=== PATIENT | female | born 1955 | race Caucasian/White ===

== ENCOUNTER 2017-07-13 19:16 | Observation (INO) | payer OTHER ==
[~2017-07-13] VITALS: Ht 149.9 cm; Wt 74.8 kg
[~2017-07-13 19:16] MED LIST: ENBREL50 MG/1 ML SC; METHOTREXATE2.5 M2 PO; PREDNISONE1 MG PO; TOPROL XL 25MG25 MG PO
--- NOTE | 2017-07-13 19:40 | ED GENERAL ADULT ---
History of Present Illness General Chief Complaint: General Adult Stated Complaint: VOMITING, FAINTING,"MAYBE THE FLU" Source: patient, family Exam Limitations: no limitations Vital Signs & Intake/Output Vital Signs & Intake/Output Vital Signs Date Time Temp Pulse Resp B/P B/P Pulse O2 O2 Flow FiO2 Mean Ox Delivery Rate 07/14 0357 98.4 70 18 106/55 97 Room Air 07/14 0031 98.1 86 18 100/56 98 Room Air 07/13 2136 99.3 90 20 106/63 97 Room Air 07/13 2108 98.3 07/13 2108 98.3 07/13 2001 101.1 07/13 1946 Room Air 07/13 193 101.1 98 24 127/75 92 Room Air ED Intake and Output 07/14 0000 07/13 1200 Intake Total 1000 Output Total Balance 1000 Intake, IV 1000 Patient 165 lb Weight Allergies Coded Allergies: NO KNOWN ALLERGIES (05/04/14) Triage Note: PER PT VOMITING ALL DAY SINCE 2 PM FEELING LOUSY, PER PT PASSED OUT, UNSURE HOW MANY TIMES PER PT USED PASS OUT WITH THE STOMACH BUG A KID DENIES CP Triage Nurses Notes Reviewed? yes Onset: Abrupt Duration: day(s): (1), constant, continues in ED, getting worse Timing: multiple episodes today Injury Environment: home Severity: moderate, severe Severity Numbers: 8 No Modifying Factors: none LMP (ages 10-50): post menopausal : No Patient currently breastfeeds: No HPI: 62-year-old female past medical history of rheumatoid arthritis presents for evaluation of nausea vomiting fever BODYaches and multiple syncopal episodes. Patient states that she woke up today feeling somewhat nauseous and then around 1 or 2 PM she started repeatedly vomiting. Patient states that she vomited again on 3 separate occasions lost consciousness after vomiting. She is unsure if she fell but notes that she broke her glasses when she woke up and was unsure how. She also notes that when she woke up after the syncopal episode she noticed chest heaviness and pressure. No shortness of breath this resolved after several minutes. She states that she had similar episodes back when she was a child during vomiting but nothing recent. She is not taking any medicine for her symptoms. She denies diarrhea hemoptysis lower extremity edema recent surgery recent trauma. No rashes or sick contacts. She is not been able to eat or drink much due to her symptoms. (Rigoberto Che) Reconcile Medications Etanercept (Enbrel) 50 MG/ML (0.98 ML) SYRINGE 50 UNITS SC QW RA (Reported) Levothyroxine Sodium 75 MCG TABLET 1 TAB PO DAILY THYROID (Reported) Methotrexate 2.5 MG TABLET 4 TAB PO QW RA (Reported) Metoprolol Succ XL (Toprol XL) 25 MG TAB 1 TAB PO DAILY SVT Prednisone 1 MG TABLET 7 MG PO DAILY RA (Reported) (Jonathan ANN,Maru) Past History Travel History Traveled to [place] past 21 day No Medical History Any Pertinent Medical History? see below for history Neurological: NONE EENT: NONE Cardiovascular: SVT Respiratory: NONE Gastrointestinal: NONE Hepatic: NONE Renal: NONE Musculoskeletal: RA Endocrine: THYROID Surgical History Surgical History: non-contributory Psychosocial History What is your primary language Kinyarwanda Tobacco Use: Never used Family History Hx Contributory? No (Rigoberto Che) Review of Systems Review of Systems Constitutional: Reports: fever, malaise, weakness. EENTM: Reports: no symptoms. Respiratory: Reports: no symptoms. Cardiovascular: Reports: see HPI, chest pain, syncope. GI: Reports: see HPI, nausea, vomiting. Genitourinary: Reports: no symptoms. Musculoskeletal: Reports: see HPI, muscle pain, muscle stiffness. Skin: Reports: no symptoms. Neurological/Psychological: Reports: see HPI, weakness. Hematologic/Endocrine: Reports: no symptoms. Immunologic/Allergic: Reports: no symptoms. All Other Systems: Reviewed and Negative (Rigoberto Che) Physical Exam Physical Exam General Appearance: well developed/nourished, no apparent distress, alert, awake , obese Head: atraumatic, normal appearance, NO EVIDENCE OF TRAUMA NO Chavez'S SIGNS OR RACCOON EYES NO PAIN TO PALPATION OF THE FACIAL BONES Eyes: Bilateral: normal appearance, PERRL, EOMI. Ears, Nose, Throat: normal pharynx, normal ENT inspection, hearing grossly normal Neck: normal inspection, supple, full range of motion, NO jvd NO CAROTID BRUITS Respiratory: normal breath sounds, chest non-tender, no respiratory distress, lungs clear Cardiovascular: regular rate/rhythm, normal peripheral pulses Peripheral Pulses: 2+ radial (R), 2+ radial (L) Gastrointestinal: normal bowel sounds, soft, non-tender, no organomegaly Back: normal inspection, normal range of motion, no vertebral tenderness Extremities: normal inspection, normal range of motion, no edema Neurologic/Psych: no motor/sensory deficits, awake, alert, oriented x 3 Skin: intact, normal color, warm/dry Core Measures ACS in differential dx? Yes No ASA d/t RULED OUT CVA/TIA Diagnosis: No Sepsis Present: No Sepsis Focused Exam Completed? No (Aneudy CHANEL,Rigoberto) Progress Differential Diagnoses I considered the following diagnoses in my evaluation of the patient: [ Arrhythmia, electrolyte abnormality, influenza, pneumonia, intracranial hemorrhage, intracranial mass, dehydration, UTI, acute coronary syndrome] Plan of Care: Orders Procedure Date/time Status Heart Healthy Diet 07/14 B Active TROPONIN LEVEL 07/14 0300 Complete EKG 07/14 0300 Active BLOOD CULTURE 07/14 223 Active Pathway - chart 07/14 221 Active House Staff 07/14 022 Active Patient Data 07/14 221 Active Code Status 07/142 Active VTE Mechanical Prophylaxis 07/14 UNK Active MISTAKE 07/14 UNK Active Telemetry/Assistant [employer]'S Soccer Coach 07/14 UNK Active Intake & Output 07/14 UNK Active ECHOCARDIOGRAM 07/[address] in observation 07/13 2353 Active ED Holding Orders 07/13 2353 Active Vital Signs 07/13 2353 Active Code Status 07/13 2353 Complete Patient Data 07/13 2349 Active Add-on Test (ER Only) 07/13 2326 Active TROPONIN LEVEL 07/13 2300 Complete EKG 07/13 2257 Active Add-on Test (ER Only) 07/13 2010 Active Intake & Output 07/13 2002 Active LIPASE 07/13 1999 Complete D-DIMER 07/13 1999 Complete URINALYSIS 07/13 1941 Complete TROPONIN LEVEL 07/13 1938 Complete COMPREHENSIVE METABOLIC PANEL 07/13 1938 Complete CBC WITHOUT DIFFERENTIAL 07/13 193 Complete EKG 07/13 1931 Active RAPID VIRAL INFLUENZA A 07/13 1924 Complete Current Medications Sig/Luis Antonio Start time Last Medication Dose Stop Time Status Admin Enoxaparin Sodium 40 MG DAILY 07/14 1000 AC (Lovenox) Metoprolol Succinate 25 MG DAILY 07/14 1000 AC (Toprol XL) Prednisone 7 MG DAILY 07/14 1000 AC Levothyroxine Sodium 0.075 MG DAILY AC 07/14 0700 AC (Synthroid) Sodium Chloride 1,000 ML Q13H 07/14 0245 AC 07/14 (Normal Saline 0.9%) 07/14 1544 0321 Acetaminophen 650 MG Q6P PRN 07/14 214 AC (Tylenol) Ibuprofen 600 MG Q6P PRN 07/14 214 AC (Motrin) Morphine Sulfate 2 MG Q4P PRN 07/14 214 AC (Morphine) Ondansetron HCl 4 MG Q6P PRN 07/14 214 AC (Zofran) Laboratory Tests 07/14/17 0302: Troponin I < 0.01 07/13/17 2335: Troponin I < 0.01 07/13/17 2140: Urine Color YEL, Urine Clarity CLEAR, Urine pH 7.0, Ur Specific Calcium 1.015, Urine Protein NEG, Urine Ketones NEG, Urine Nitrite NEG, Urine Bilirubin NEG, Urine Urobilinogen 0.2, Ur Leukocyte Esterase NEG, Ur Microscopic EXAM NOT REQUIRED, Urine Hemoglobin NEG, Urine Glucose NEG 07/13/171999: Anion Gap 15, Estimated GFR > 60, BUN/Creatinine Ratio 30.0 H, Glucose 94, Calcium 8.8, Total Bilirubin 1.2, AST 43 H, ALT 27, Alkaline Phosphatase 73, Troponin I < 0.01, Total Protein 7.6, Albumin 4.2, Globulin 3.4, Albumin/ Globulin Ratio 1.2, Lipase 142, D-Dimer High Sensitivty 331 H, CBC w Diff NO MAN DIFF REQ, RBC 4.64, MCV 91.0, MCH 30.5, MCHC 33.5, RDW 14.6 H, MPV 8.0, Gran % 86.5 H, Lymphocytes % 5.5 L, Monocytes % 7.0, Eosinophils % 0.7, Basophils % 0.3, Absolute Granulocytes 6.0, Absolute Lymphocytes 0.4 L, Absolute Monocytes 0.5, Absolute Eosinophils 0, Absolute Basophils 0 Microbiology 07/14 0353 BLOOD: Blood Culture - RECD 07/14 344 BLOOD: Blood Culture - RECD 07/13 1929 NASOPHARYN: Influenza Virus A & B Rapid Smear - COMP Patient seen and evaluated. She currently is febrile and reporting nausea and multiple episodes of vomiting along with syncope. Patient had 3 syncopal episodes after vomiting. She also notes feeling chest pressure during this period immediately after the syncopal episode. Currently she has no chest pain or shortness of breath. She does have a history of SVT. Patient is negative for the flu no signs of pneumonia CT of the head is negative for trauma. Patient's d-dimer is 331 and her age adjusted d-dimer is 320. She has no DVT risk factors low likelihood. Due to patient's multiple syncopal episodes she will require admission for telemetry observation. She will need serial cardiac enzymes, serial EKGs, telemetry monitoring, IV fluids, antipyretics, monitoring of vital signs, cardiology consult. Case discussed with Dr. Castillo she agrees. Patient's repeat EKG shows improved rate. Patient has clinical signs and symptoms of the flu. No evidence of bacterial infection. She works at a detention with multiple flu patients. She'll be started on Tamiflu based on clinical signs and symptoms. Diagnostic Imaging: Viewed by Me: Radiology Read, CT Scan. Discussed w/RAD: Radiology Read, CT Scan. Radiology Impression: PATIENT: OSBALDO MONZON PRESENT AGE: 62 PATIENT ACCOUNT NO: [id number] : 53 LOCATION: ER ORDERING PHYSICIAN: Rigoberto CHANEL SERVICE DATE: 07/13/17 EXAM TYPE: CAT - CT HEAD WO IV CONTRAST EXAMINATION: CT HEAD WITHOUT CONTRAST CLINICAL INFORMATION: Syncope with head strike COMPARISON: None TECHNIQUE: Contiguous axial imaging was performed from the skull base to vertex without intravenous administration of contrast. DLP: 627 mGy-cm FINDINGS: There is no evidence of acute intracranial hemorrhage or territorial infarction. No abnormal mass effect or midline shift is seen. Bui to white matter differentiation is well preserved. No extra-axial fluid collections are identified. The ventricles are normal in size. There is no abnormal attenuation within the brain parenchyma. The osseous structures and soft tissues are normal. The mastoid air cells and visualized portions of the paranasal sinuses are well aerated. IMPRESSION: No acute intracranial pathology. DICTATED BY: Meredith Mayorga MD DATE/TIME DICTATED:07/13/172146 [employer] DATE/TIME TRANSCRIBED:07/13/172146 CXR Impression: PATIENT: OSBALDO MONZON PRESENT AGE: 62 PATIENT ACCOUNT NO: [id number] : 53 LOCATION: [facility] ORDERING PHYSICIAN: Rigobreto CHANEL SERVICE DATE: 01/27/18-1938 EXAM TYPE: RAD - XRY-PORTABLE CHEST XRAY EXAMINATION: XR PORTABLE CHEST CLINICAL INFORMATION: Cough, fever COMPARISON: 07/16/2016 TECHNIQUE: Portable portable AP view of the chest was obtained. FINDINGS: The cardiomediastinal contours are stable. The lungs are clear without consolidation or effusion. The visualized osseous structures appear grossly unremarkable. IMPRESSION: No acute pulmonary process. DICTATED BY : Meredith Mayorga MD DATE/TIME DICTATED:07/13/172123 [employer] DATE/TIME TRANSCRIBED:07/13/172123 Initial ED EKG: normal sinus rhythm, no ST T wave changes Repeat EKG: changed (IMPROVED RATE) (Rigoberto Che) Departure Departure Disposition: STILL A PATIENT Condition: Stable Clinical Impression Primary Impression: Syncope and collapse Secondary Impressions: Nausea & vomiting Qualifiers: Vomiting type: unspecified Vomiting Intractability: unspecified Qualified Code: R11.2 - Nausea with vomiting, unspecified Referrals: Patient Has No Primary Care Dr (PCP/Family) Departure Forms: Customer Survey General Discharge Information Observation Note Spoke With: Kayleigh [facility]keon [facility] Physician Advisor Notified: MARILOU ANN,AVA [address] Patient In: Non-ED OBS Care Area Rationale for Observation: My rational for observation is as follows [patient had multiple syncopal episodes associated with vomiting and chest pressure/heaviness. She will require IV fluids, serial cardiac enzymes, serial EKGs, cardiology consult, telemetry monitoring, Tamiflu]. (Rigoberto Che) Departure Prescriptions: Current Visit Scripts Metoprolol Succ XL (Toprol XL) 1 TAB PO DAILY #30 TAB PA/VEHICLE DAMAGE APPRAISER Co-Sign Statement Statement: ED Attending supervision documentation- [X] I saw and evaluated the patient. I have also reviewed all the pertinent lab results and diagnostic results. I agree with the findings and the plan of care as documented in the PA's/VEHICLE DAMAGE APPRAISER's documentation. [X] I have reviewed the ED Record and agree with the PA's/VEHICLE DAMAGE APPRAISER's documentation. [] Additions or exceptions (if any) to the PAs/VEHICLE DAMAGE APPRAISER's note and plan are summarized below: [] (Jonathan ANN,Maru) Critical Care Note Critical Care Note Critical Care Time: non-applicable (Rigoberto Che)
[2017-07-13 20:13] LABS: ABSOLUTE BASOPHIL COUNT 0 /CUMM (0.0-0.2); ABSOLUTE EOSINOPHIL COUNT 0 /CUMM (0.0-0.7); ABSOLUTE LYMPH COUNT 0.4 /CUMM (1.2-3.4); ABSOLUTE MONOCYTE COUNT 0.5 /CUMM (0.10-0.60); BASOPHIL % 0.3 % (0.0-2.0); EOSINOPHIL % 0.7 % (0-5); HEMATOCRIT 42.2 % (37-47); MEAN CORPUSCULAR HGB 30.5 PG (27.0-31.0); MEAN CORPUSCULAR HGB CONC 33.5 G/DL (33.0-37.0); PLATELET COUNT 196 /CUMM (130-400); RBC DISTRIBUTION WIDTH 14.6 % (11.5-14.5); RED BLOOD CELL CT 4.64 /CUMM (4.20-5.40); WHITE BLOOD CELL COUNT 6.9 /CUMM (4.8-10.8)
[2017-07-13 20:19] LABS: GRANULOCYTE % 86.5 % (42.2-75.2)
--- NOTE | 2017-07-13 21:29 | RADIOLOGY REPORT ---
EXAMINATION: XR PORTABLE CHEST CLINICAL INFORMATION: Cough, fever COMPARISON: 07/16/2016 TECHNIQUE: Portable portable AP view of the chest was obtained. FINDINGS: The cardiomediastinal contours are stable. The lungs are clear without consolidation or effusion. The visualized osseous structures appear grossly unremarkable. IMPRESSION: No acute pulmonary process.
--- NOTE | 2017-07-13 22:00 | CT SCAN REPORT ---
EXAMINATION: CT HEAD WITHOUT CONTRAST CLINICAL INFORMATION: Syncope with head strike COMPARISON: None TECHNIQUE: Contiguous axial imaging was performed from the skull base to vertex without intravenous administration of contrast. DLP: 627 mGy-cm FINDINGS: There is no evidence of acute intracranial hemorrhage or territorial infarction. No abnormal mass effect or midline shift is seen. Bui to white matter differentiation is well preserved. No extra-axial fluid collections are identified. The ventricles are normal in size. There is no abnormal attenuation within the brain parenchyma. The osseous structures and soft tissues are normal. The mastoid air cells and visualized portions of the paranasal sinuses are well aerated. IMPRESSION: No acute intracranial pathology.
[2017-07-14] MEDS ORDERED: LEVOTHYROXINE75 MCG PO (02:27)
[2017-07-14] MEDS ORDERED: TOPROL XL25 M1 PO (02:27)
--- NOTE | 2017-07-14 03:19 | History & Physical ---
Clare ANN,[facility] 07/14/17 0318: General Information and HPI MD Statement: I have seen and personally examined OSBALDO HUERTA and documented this H&P. The patient is a 62 year old F who presented with a patient stated chief complaint of [Vomiting, Syncope]. Source of Information: patient Exam Limitations: no limitations History of Present Illness: Mr. Huerta is a 62-year-old lady with past medical history significant for SVT, hypothyroidism and rheumatoid arthritis on methotrexate, etanercept and prednisone presents with vomiting followed by loss of consciousness starting this afternoon. Patient states that she was feeling nauseous when she woke up this morning, didn 't eat her breakfast because of the nausea, then around 1:30 PM she started having vomiting followed by loss of consciousness. Reports 5-6 episodes of vomiting and 3 episodes of syncope since this afternoon. Unsure about the duration of syncope, could be from couple of seconds to minutes. She thinks she hit her head as well as her glasses were broken and her head also feels sore. Denies any lightheadedness/dizziness, visual changes, shortness of breath or palpitations before passing out. Also denies any fever, abdominal pain, diarrhea, urinary symptoms or blood in stools or urine. Does report chills and one episode of chest pressure, 2/10 in intensity, without any radiation which lasted for 1-2 minutes and resolved on its own. She works at [employer] and reports sick contacts with flu and stomach bug(having diarrhea but no vomiting), denies any recent travel, change in medications(except for prednisone which was increased from 2 mg to [address] Maguire for her rheumatoid arthritis exacerbation) or unusual eating. Allergies/Medications Allergies: Coded Allergies: NO KNOWN ALLERGIES (05/04/14) Home Med list Etanercept (Enbrel) 50 MG/ML (0.98 ML) SYRINGE 50 UNITS SC QW RA (Reported) Levothyroxine Sodium 75 MCG TABLET 1 TAB PO DAILY THYROID (Reported) Methotrexate 2.5 MG TABLET 4 TAB PO QW RA (Reported) Metoprolol Succ XL (Toprol XL) 25 MG TAB 1 TAB PO DAILY SVT Prednisone 1 MG TABLET 7 MG PO DAILY RA (Reported) Past History Travel History Traveled to [place] past 21 day No Medical History Neurological: NONE EENT: NONE Cardiovascular: SVT Respiratory: NONE Gastrointestinal: NONE Hepatic: NONE Renal: NONE Musculoskeletal: RA Endocrine: hypothyroidism Surgical History Surgical History: Past Family/Social History Family History Relations & Conditions if any FATHER, . FHx: lung cancer Psychosocial History Where do you live? Home Who Do You Live With? spouse Services at Home: None Smoking Status: Never Smoked ETOH Use: occasional use Illicit Drug Use: denies illicit drug use Functional Ability ADLs Independent: dressing, eating, toileting, bathing. Ambulation: independent IADLs Independent: shopping, housework, finances, food prep, telephone, transportation , medication admin. Review of Systems Review of Systems Constitutional: Reports: chills. EENTM: Reports: no symptoms. Cardiovascular: Reports: chest pain, syncope. Respiratory: Reports: no symptoms. GI: Reports: nausea. Genitourinary: Reports: no symptoms. Musculoskeletal: Reports: no symptoms. Skin: Reports: no symptoms. Neurological/Psychological: Reports: no symptoms. Hematologic/Endocrine: Reports: no symptoms. Immunologic/Allergic: Reports: no symptoms. All Other Systems: Reviewed and Negative Exam & Diagnostic Data Last 24 Hrs of Vital Signs/I&O Vital Signs Date Time Temp Pulse Resp B/P B/P Pulse O2 O2 Flow FiO2 Mean Ox Delivery Rate 07/14 0031 98.1 86 18 100/56 98 Room Air 07/13 2136 99.3 90 20 106/63 97 Room Air 07/13 2108 98.3 07/13 2108 98.3 07/13 2001 101.1 07/13 1946 Room Air 07/13 193 101.1 98 24 127/75 92 Room Air Intake & Output 07/14 0800 07/14 0000 07/13 1600 Intake Total 1000 Output Total Balance 1000 Intake, IV 1000 Patient 165 lb Weight Physical Exam General Appearance Alert, Oriented X3, Cooperative, No Acute Distress Skin No Rashes, No Breakdown HEENT Atraumatic, PERRLA, EOMI, Mucous Membr. moist/pink Neck Supple, No JVD, No thryomegaly Cardiovascular Regular Rate, Normal S1, Normal S2 Lungs Clear to Auscultation, Normal Air Movement Abdomen Normal Bowel Sounds, Soft, No Tenderness Extremities No Clubbing, No Cyanosis, No Edema, Normal Pulses Last 24 Hrs of Labs/Eusebio: Laboratory Tests 07/14/17 0302: Troponin I < 0.01 07/13/17 2335: Troponin I < 0.01 07/13/17 2140: Urine Color YEL, Urine Clarity CLEAR, Urine pH 7.0, Ur Specific [place] 1.015, Urine Protein NEG, Urine Ketones NEG, Urine Nitrite NEG, Urine Bilirubin NEG, Urine Urobilinogen 0.2, Ur Leukocyte Esterase NEG, Ur Microscopic EXAM NOT REQUIRED, Urine Hemoglobin NEG, Urine Glucose NEG 07/13/171999: Anion Gap 15, Estimated GFR > 60, BUN/Creatinine Ratio 30.0 H, Glucose 94, Calcium 8.8, Total Bilirubin 1.2, AST 43 H, ALT 27, Alkaline Phosphatase 73, Troponin I < 0.01, Total Protein 7.6, Albumin 4.2, Globulin 3.4, Albumin/ Globulin Ratio 1.2, Lipase 142, D-Dimer High Sensitivty 331 H, CBC w Diff NO MAN DIFF REQ, RBC 4.64, MCV 91.0, MCH 30.5, MCHC 33.5, RDW 14.6 H, MPV 8.0, Gran % 86.5 H, Lymphocytes % 5.5 L, Monocytes % 7.0, Eosinophils % 0.7, Basophils % 0.3, Absolute Granulocytes 6.0, Absolute Lymphocytes 0.4 L, Absolute Monocytes 0.5, Absolute Eosinophils 0, Absolute Basophils 0 Microbiology 07/14 223 BLOOD: Blood Culture - ORD 07/14 223 BLOOD: Blood Culture - ORD 07/13 1929 NASOPHARYN: Influenza Virus A & B Rapid Smear - COMP Diagnostic Data EKG Results [place] Sinus rhythm HR 94 QTc 426 CXR Results IMPRESSION: No acute pulmonary process. Other Results CT HEAD WO IV CONTRAST IMPRESSION: No acute intracranial pathology. Assessment/Plan Assessment: Mr. Huerta is a 62-year-old lady with past medical history significant for SVT, hypothyroidism and rheumatoid arthritis on methotrexate, etanercept and prednisone presents with vomiting followed by loss of consciousness starting this afternoon. A/P; 1. Vomiting with Syncopal Episodes; most likely vasovagal as the syncopal episodes happened after the vomiting. Patient also reports similar episodes in the past, during her 30s. - We will observe the patient on telemetry floor for 24 to 48 hrs. - Serial troponins and EKG to rule out ACS. - Cardiology consult in a.m. - Metoprolol - Vomiting most likely due to viral gastroenteritis. Supportive management with IV fluids and clear liquid diet, was advanced the diet as tolerated. - Zofran as needed for nausea 2. Fever of 101.1; Even though patient does not have a white count and does not have any symptoms other than nausea and vomiting, use of methotrexate and etanercept makes her immunocompromised. - Tylenol as needed for fever. - Flu test and UA are negative. - Will follow blood cultures. - Will watch off antibiotics for now. 3. History of SVT; - Continue metoprolol. 4. History of rheumatoid arthritis; - Continue prednisone. - We will hold methotrexate and etanercept for now. DVT Prophylaxis; subcutaneous Lovenox Patient is full code Core Measures/Misc (03/03) Acute Coronary Syndrome ACS Diagnosis: No Congestive Heart Failure Congestive Heart Failure Diagnosis No Cerebrovascular Accident CVA/TIA Diagnosis: No VTE (View Protocol) VTE Risk Factors Age>40 No Mechanical VTE Prophylaxis d/t N/A MechProphylax Ordered No VTE Pharm Prophylaxis d/t NA PharmProphylax ordered Sepsis (View protocol) Sepsis Present: No Mike ANN, [facility] 07/14/17 0444: Attending MD Review Statement Attending Statement Attending MD Statement: examined this patient, discuss w/resident/PA/BAR CATCHER, agreed w/resident/PA/BAR CATCHER, reviewed images, amended to note Attending Assessment/Plan: 62 yo F with h/o RA on methotrexate, prednisone and enbrel, SVT, hypothyroidism, is here for evaluation of sudden onset nausea, vomiting and recurrent syncopal episodes. Patient works at [employer] and has been serving the floor with 'flu' patients. She ate breakfast and a light dinner at work itself yesterday. This morning, she felt nauseous and around 1 pm onwards had several episodes of nonbilious nonbloody emesis followed by few seconds of syncope and collapse. She fell, had head strike and broke her glasses due to this. C/o transient intermittent chest discomfort after vomiting. She denies sore throat, cough or other URI symptoms. Patient reports similar episodes of syncope after vomiting in her early 30's. Vitals: Tmax 101.1, HR 70-90's, BP 100/56, sats 97% RA. Exam: AAO, in no distress, dry mucous membranes, no pharyngeal erythema, Neck supple, Chest b/l clear, Heart S1S2 regular, Abd soft, NT, LE no edema. Labs: WBC 6.9, BUN 18, elevated BUN/ creat ratio, AST 43, trop neg. CXR: no acute process. Head CT: neg. EKG: sinus rhythm, no acute changes. Flu swab negative. Assessment and plan: 1. Syncope and collapse, likely vasovagal 2. Transient chest heaviness, rule out ACS 3. Intractable nausea, vomiting ?viral gastroenteritis though no evidence of diarrhea in this patient 4. No URI symptoms, flu swab negative, low suspicion for influenza 5. Rheumatoid arthritis on methotrexate and prednisone - 23 hour observation on Telemetry - Monitor for arrhythmias - Check orthostats - Check serum cortisol levels - Serial EKG and troponin - Obtain echo and Cardio consult (patient follows with Dr. Newell) - Supportive care with IV fluids, anti-emetics and tylenol - Panculture, watch off antibiotics - Check urine tox screen - If hypotensive, consider stress dose steroids - Hold methotrexate and enbrel - Resume prednisone, metoprolol, synthroid and folic acid DVT ppx Lovenox. Full code. Observation Initial Note - I have personally examined OSBALDO HUERTA on 07/14/17 at 0444. The disposition of OSBALDO HUERTA is uncertain at this time and before a determination can be made, she requires a period of observation for the following reasons [Syncope, recurrent vomiting.] Ricky ANN,[facility] 07/14/17 0456: Assessment/Plan As Ranked By This Provider Problem List: 1. Syncope and collapse 2. Nausea & vomiting Qualifiers Vomiting type: unspecified Vomiting Intractability: unspecified Qualified Code: R11.2 - Nausea with vomiting, unspecified Resident Review Statement Resident Statement: examined this patient, discussed with internet sales representative, agreed with internet sales representative Other Findings: This is a 62-year-old female with past medical history significant for RA on DMARD, hypothyroidism, SVT, who comes in for chief complaint of emesis and syncope. Per patient, she woke up this morning feeling "lousy." She said she felt unwell all day and this afternoon started having multiple episodes of vomiting. She states she had 5-6 episodes of vomiting and that associated with three of those episodes of emesis she had LOC. She states she lost consciousness from anywhere between a few seconds to a minute. During one of those episodes she fell down and broke her glasses. She endorses nausea, vomiting, chills, riders, and syncope. She states that this has happened before in her childhood. As a child whenever she had gastrointestinal illness associated emesis she would pass out. Last time this happened was when she was in her 30s. Pt works at a [employer] and ate food from their cafeteria on Saturday. She had a can of soup last night for dinner and didn't note any adverse effects. She does endorse sick contacts at her place of work. Two patients have influenza and another two have GI symptoms. Notably, she had a recent RAflare are and had steroid injection in her left knee along with an increase in her dose of prednisone. She currently takes 7 mg daily, she used to previously take 2 mg. Vitals: 101.1, 98, 18-24, 100/56-127/75, satting 92-98%. LABS: UA normal. White count 6.9. Troponin 2 negative. D-dimer 331. BUN 18. AST 43. Negative flu screen. Head CT negative for acute intracranial pathology. Normal chest x-ray. EKG shows rate 78, with some ST depressions in the lateral leads that were present in previous EKG. QTC 438 ASSESSMENT: This is a 62-year-old female past medical history significant for RA , hypothyroidism, SVT, who comes in for chief complaint of emesis and syncope. Given similar previous history, suspect that the loss of consciousness is vagally induced by the emesis. However, given that she has fever 101.1 and is immune compromised due to RA and use of Etanercept, MTX and recently increased prednisone, we will monitor pt as OBS to rule out other pathologies. PLAN: 1. Syncope: Suspect vasovagal etiology; however given hx of SVT will monitor on tele to rule out arrhythmia. * Troponin and EKG * Echocardiogram * Orthostatics 2. Nausea and vomiting: Patient describes 5-6 episodes of emesis today. She states that they have subsequently resolved. No associated diarrhea. * Zofran when necessary * Monitor clinically * IVF 3. RA: Chronic and stable * Holding monthly etanercept * Holding MTX * Con't Prednisone 7mg 4. Hx SVT: * Con't Toprol XL 25 5. Hypothyroidism: Chronic and stable * Continue levothyroxine 75 g FC Reg diet Chem ppx
[2017-07-14 12:15] VITALS: BP 113/62
[2017-07-14 14:14] VITALS: BP 106/66
--- NOTE | 2017-07-14 16:10 | Cons- Cardiology ---
General Information and HPI Consulting Request Date of Consult: 07/14/17 Requested By: Mike ANN,Keithalakshmi Reason for Consult: Syncope History of Present Illness: The patient is a 62-year-old female who who is well-known to me with history of SVT, status post ablation, hypothyroidism, and rheumatoid arthritis. She is admitted for syncope. She noted that she was feeling nauseous when she awoke this morning. She did not eat breakfast because of not feeling well. Approximate 1:30 PM she began vomiting in this is followed by loss of consciousness. She had 5-6 episodes of vomiting and 3 episodes later in the afternoon. She may have had head trauma, and her glasses were broken. No palpitations. No visual changes. She had an episode of chest pressure which was 2 out of 10 in severity and lasted for approximately 2 minutes. She is exposed to sick contacts in her work at [employer]. No hemoptysis. Hematemesis. Allergies/Medications Allergies: Coded Allergies: NO KNOWN ALLERGIES (05/04/14) Home Med List: Etanercept (Enbrel) 50 MG/ML (0.98 ML) SYRINGE 50 UNITS SC QW RA (Reported) Levothyroxine Sodium 75 MCG TABLET 1 TAB PO DAILY THYROID (Reported) Methotrexate 2.5 MG TABLET 4 TAB PO QW RA (Reported) Metoprolol Succ XL (Toprol XL) 25 MG TAB 1 TAB PO DAILY SVT Prednisone 1 MG TABLET 7 MG PO DAILY RA (Reported) Current Medications: Current Medications Sig/Luis Antonio Start time Last Medication Dose Route Stop Time Status Admin Acetaminophen 650 MG Q6P PRN 07/145 AC PO Acetaminophen 1,000 MG ONCE ONE 07/13 1999 DC 07/13 N/A 1 UNIT IV 07/13 Acetaminophen 0 .STK-MED ONE 07/13 1956 DC IV Enoxaparin Sodium 40 MG DAILY 07/14 1000 AC 07/14 SC 0855 Ibuprofen 600 MG Q6P PRN 07/14 214 AC PO Levothyroxine Sodium 0.075 MG DAILY AC 07/14 0700 AC 07/14 PO 0855 Metoprolol Succinate 25 MG DAILY 07/14 1000 AC 07/14 PO 0855 Morphine Sulfate 2 MG Q4P PRN 07/14 214 AC IV Ondansetron HCl 4 MG Q6P PRN 07/14 0215 AC IV Ondansetron HCl 4 MG ONCE ONE 07/13 2129 DC 07/13 IV 07/13 Ondansetron HCl 0 .STK-MED ONE 07/13 2127 DC .ROUTE Oseltamivir Phosphate 75 MG ONCE ONE 07/13 2344 DC 07/13 PO 07/13 Prednisone 7 MG DAILY 07/14 1000 AC 07/14 PO 0855 Sodium Chloride 1,000 ML Q13H 07/14 0245 DC 07/14 IV 07/14 1544 0321 Sodium Chloride 1,000 ML BOLUS ONE 07/13 2129 DC 07/13 IV 07/13 Sodium Chloride 1,000 ML BOLUS ONE 07/13 2000 DC 07/13 IV 07/13 Review of Systems Review of Systems: No rash. No tremor. No fever. No chills. All other systems were reviewed, and were noted to be negative. Past History Travel History Traveled to [place] past 21 day No Medical History Blood Transfusion Hx: No Neurological: SYNCOPE EENT: NONE Cardiovascular: SVT ABLATION Respiratory: NONE Gastrointestinal: NONE Hepatic: NONE Renal: NONE Musculoskeletal: RA Psychiatric: NONE Endocrine: hypothyroidism Blood Disorders: NONE Cancer(s): NONE STEEL HANDLER/Reproductive: NONE Surgical History Surgical History: Family History Relations & Conditions If Any: FATHER, . FHx: lung cancer Psychosocial History Where Do You Live? Home Who Do You Live With? spouse Services at Home: None Smoking Status: Never Smoked ETOH Use: occasional use Illicit Drug Use: denies illicit drug use Functional Ability ADLs Independent: dressing, eating, toileting, bathing. Ambulation: independent IADLs Independent: shopping, housework, finances, food prep, telephone, transportation , medication admin. Exam & Diagnostic Data Vital Signs and I&O Vital Signs Date Time Temp Pulse Resp B/P B/P Pulse O2 O2 Flow FiO2 Mean Ox Delivery Rate 07/14 1414 99.1 75 18 106/66 98 Room Air 07/14 1215 98.2 75 20 113/62 96 Room Air 07/14 0855 75 102/55 07/14 0618 97.1 75 18 102/55 98 Room Air 07/14 0357 98.4 70 18 106/55 97 Room Air 07/14 0031 98.1 86 18 100/56 98 Room Air 07/13 2136 99.3 90 20 106/63 97 Room Air 07/13 2108 98.3 07/13 2108 98.3 07/13 2001 101.1 07/136 Room Air 07/13 1933 101.1 98 24 127/75 92 Room Air Intake & Output 07/14 0800 07/14 0000 07/13 1600 07/13 0800 07/13 0000 Intake Total 360 1000 Output Total Balance 360 1000 Intake, IV 1000 Intake, Oral 360 Patient 165 lb 165 lb Weight Physical Exam: Gen: The patient is in no acute distress HEENT: Normal nose, ears, and oropharynx. Pupils equal bilaterally. Conjunctiva normal. Neck: Supple with no JVD, no masses, and no thyromegaly Lungs: Clear to auscultation with normal respiratory effort Heart: RRR, S1, S2, no murmurs. No peripheral edema, 2+ pulses in the lower extremities bilaterally Abdomen: Soft, nontender, no masses. No hepatomegaly. No splenomegaly Extremities: No clubbing or cyanosis. Normal muscle strength in the upper and lower extremities Skin: Normal skin turgor with no skin ulcers or lesions noted. Neuro: Cranial nerves intact. Sensation intact Psych: Alert and oriented 3 with appropriate affect Diagnostic Data EKG Results EKG tracing is independently reviewed, and reveals normal sinus rhythm at 68, low-voltage CXR Results The cardiomediastinal contours are stable. The lungs are clear without consolidation or effusion. The visualized osseous structures appear grossly unremarkable. Other Results Head CT: Negative Echocardiogram 06/16/14: Normal LV size and systolic function. Abnormal diastolic function. Mild TR. Mild MR. Holter 05/27/14: Sinus rhythm. Heart rate 48-100. Rare PACs. 7 beat run of SVT. Symptom of feeling tired correlated with sinus bradycardia. Assessment/Plan Assessment/Plan 1. Paroxysmal SVT, improved status post ablation 2. Normal left atrial function on most recent echo 4 years ago 3. Syncope in the setting of nausea and vomiting. Differential diagnosis includes vasovagal syncope versus volume depletion. Cardiogenic syncope is possible as well but seems less likely at this point. Postural vital signs were checked and she is not orthostatic. Recommendations: * Monitor on telemetry for arrhythmias * Continue metoprolol * Continue other cardiac medications * Echocardiogram Consult Acknowledgment - Thank you for your consult request.
--- NOTE | 2017-07-14 19:51 | PN- Att Addend ---
Attending Addendum Attending Brief Note Laboratory Tests 07/14/17 0840: Cortisol AM Sample 12.6 07/14/17 0302: Troponin I < 0.01 07/13/17 2335: Troponin I < 0.01 07/13/17 2140: Urine Opiates Screen < 100.00, Methadone Screen < 40, Barbiturate Screen < 60, Ur Phencyclidine Scrn < 6.00, Amphetamines Screen < 100, U Benzodiazepines Scrn < 85, Urine Cocaine Screen < 50, Urine Cannabis Screen < 5.00, Urine Color YEL, Urine Clarity CLEAR, Urine pH 7.0, Ur Specific [place] 1.015, Urine Protein NEG, Urine Ketones NEG, Urine Nitrite NEG, Urine Bilirubin NEG, Urine Urobilinogen 0.2, Ur Leukocyte Esterase NEG, Ur Microscopic EXAM NOT REQUIRED, Urine Hemoglobin NEG, Urine Glucose NEG 07/13/171999: Anion Gap 15, Estimated GFR > 60, BUN/Creatinine Ratio 30.0 H, Glucose 94, Calcium 8.8, Total Bilirubin 1.2, AST 43 H, ALT 27, Alkaline Phosphatase 73, Troponin I < 0.01, Total Protein 7.6, Albumin 4.2, Globulin 3.4, Albumin/ Globulin Ratio 1.2, Lipase 142, D-Dimer High Sensitivty 331 H, CBC w Diff NO MAN DIFF REQ, RBC 4.64, MCV 91.0, MCH 30.5, MCHC 33.5, RDW 14.6 H, MPV 8.0, Gran % 86.5 H, Lymphocytes % 5.5 L, Monocytes % 7.0, Eosinophils % 0.7, Basophils % 0.3, Absolute Granulocytes 6.0, Absolute Lymphocytes 0.4 L, Absolute Monocytes 0.5, Absolute Eosinophils 0, Absolute Basophils 0 Vital Signs Date Time Temp Pulse Resp B/P B/P Pulse O2 O2 Flow FiO2 Mean Ox Delivery Rate 07/14 1414 99.1 75 18 106/66 98 Room Air 07/14 1215 98.2 75 20 113/62 96 Room Air 07/14 0855 75 102/55 07/14 0618 97.1 75 18 102/55 98 Room Air 07/14 0357 98.4 70 18 106/55 97 Room Air 07/14 0031 98.1 86 18 100/56 98 Room Air 07/13 2137 99.3 90 20 106/63 97 Room Air 07/13 2108 98.3 07/13 2108 98.3 07/13 2001 101.1 Trop times 3 negative. UA negative. Flu Negative. CXR negative. cardiology input appreciated. Get echocardiogram. Recurrent syncopal episode likely vasovagal. will dc tomorrow if echo ok. d/w pt the care plan.
[2017-07-14 22:25] VITALS: BP 104/66
[2017-07-15 06:26] VITALS: BP 98/58
--- NOTE | 2017-07-15 07:05 | PN- Housestaff ---
Ramo ANN,Marianne 07/15/17 0705: Subjective Follow-up For: Vasovagal syncope Complaints: no complaints Tele-Events Since Last Visit: Sinus rhythm heart rate 60 Subjective: Patient was seen and examined by me at bedside. She was lying in her bed comfortably. No overnight events. She offers no complaints. She denies dizziness, loss of consciousness, fall, presyncope, chest pain, shortness of breath, chest pressure. Review of Systems Constitutional: Reports: no symptoms. Cardiovascular: Reports: no symptoms. Respiratory: Reports: no symptoms. Gastrointestinal: Reports: no symptoms. Genitourinary: Reports: no symptoms. Musculoskeletal: Reports: no symptoms. Objective Last 24 Hrs of Vital Signs/I&O Vital Signs Date Time Temp Pulse Resp B/P B/P Pulse O2 O2 Flow FiO2 Mean Ox Delivery Rate 07/15 0626 98.1 64 22 98/58 96 Room Air 07/14 2225 98.3 69 22 104/66 97 07/14 1414 99.1 75 18 106/66 98 Room Air 07/14 1215 98.2 75 20 113/62 96 Room Air Intake & Output 07/15 1600 07/15 0800 07/15 0000 Intake Total 100 200 Output Total Balance 100 200 Intake, Oral 100 200 Physical Exam General Appearance: Alert, Oriented X3, Cooperative, No Acute Distress HEENT: PERRLA Cardiovascular: Regular Rate, Normal S1, Normal S2, Gallops Lungs: Normal Air Movement Abdomen: Normal Bowel Sounds, Soft, No Tenderness, No Hepatospenomegaly Neurological: Normal Speech, Strength at 5/5 X4 Ext, Normal Tone, Sensation Intact Extremities: No Edema Current Medications: Current Medications Sig/Luis Antonio Start time Last Medication Dose Route Stop Time Status Admin Acetaminophen 650 MG Q6P PRN 07/14 0215 AC PO Enoxaparin Sodium 40 MG DAILY 07/14 1000 AC 07/14 SC 0855 Ibuprofen 600 MG Q6P PRN 07/145 AC PO Levothyroxine Sodium 0.075 MG DAILY AC 07/14 0700 AC 07/15 PO 0619 Metoprolol Succinate 25 MG DAILY 07/14 1000 AC 07/14 PO 0855 Morphine Sulfate 2 MG Q4P PRN 07/145 AC IV Ondansetron HCl 4 MG Q6P PRN 07/14 0215 AC IV Prednisone 7 MG DAILY 07/14 1000 AC 07/14 PO 0855 Sodium Chloride 1,000 ML Q13H 07/14 0245 DC 07/14 IV 07/14 1544 0321 Last 24 Hrs of Lab/Eusebio Results Last 24 Hrs of Labs/Mics: Laboratory Tests 07/15/17 0650: Anion Gap 10, Estimated GFR > 60, BUN/Creatinine Ratio 18.3 Assessment/Plan Assessment: Ms. Huerta is a 62-year-old lady with past medical history significant for SVT, hypothyroidism and rheumatoid arthritis on methotrexate, etanercept and prednisone presents with vomiting followed by loss of consciousness starting this afternoon. A/P Syncope: Given the patient's long history of nausea and vomiting followed by syncopal episode this looks most likely vasovagal but cardiogenic syncope should be ruled out. Agent is being followed by occupational therapy specialist Dr. Clint alford. Echocardiogram pending. No overnight events. No arrhythmia. Off note patient is taking metoprolol for SVT [status post ablation]. Orthostatics were negative. 2. RA: Chronic and stable * Holding monthly etanercept * Holding MTX * Con't Prednisone 7mg 3. Hx SVT: * Con't Toprol XL 25 5. Hypothyroidism: * Continue levothyroxine 75 g FC Reg diet DVT prophylaxis-Lovenox subcutaneous Problem List: 1. SVT (supraventricular tachycardia) 2. Syncope and collapse Pain Ratin Pain Location: none Pain Goal: Remain pain free Pain Plan: tylenol,morphine Tomorrow's Labs & Rationales: none Tana ANN,Zofia 07/15/17 1551: Attending MD Review Statement Attending Statement Attending MD Statement: examined this patient, discuss w/resident/PA/SAFETY COUNCIL DIRECTOR, agreed w/resident/PA/SAFETY COUNCIL DIRECTOR, reviewed EMR data (avail), discussed with nursing, discussed with case mgmt, amended to note Attending Assessment/Plan: Patient seen and examined. Resting comfortably and not in any acute distress. No issues overnight. Denies any further nausea vomiting. Denies any abdominal pain. No further episodes of loss of consciousness. No events on telemetry monitoring. Transaminases were mildly elevated on admission but repeat labs are normal. Right upper quadrant sonogram shows no acute pathology. Her nausea and vomiting was likely secondary to a viral syndrome that has resolved. This likely triggered her syncopal episode. She is currently medically stable to be discharged home today.
--- NOTE | 2017-07-15 08:07 | Patient Discharge Instructions ---
Discharge Instructions General Discharge Information You were seen/treated for: Vasovagal syncope Watch for these problems: In case of chest pain, chest pressure, shortness of breath, dizziness, loss of consciousness please go to the nearest ER Special Instructions: Please follow-up with your primary care physician within 1-2 weeks of discharge. Tested negative for INFLUENZA A & B Please follow-up with your hand hide stretcher within 1-2 weeks of discharge and get an echocardiogram done. Diet Continue normal diet: No Recommended Diet: Heart Healthy Activity Full Activity/No Limits: No Activity Self Limited: Yes Acute Coronary Syndrome Inclusion Criteria At DC or during hospital stay patient has or had the following: ACS DIAGNOSIS No Discharge Core Measures Meds if any: Prescribed or Continued at Discharge Meds if any: NOT Prescribed or Continued at Discharge Congestive Heart Failure Inclusion Criteria At DC or during hospital stay patient has or had the following: CHF DIAGNOSIS No Discharge Core Measures Meds if any: Prescribed or Continued at Discharge Meds if any: NOT Prescribed or Continued at Discharge Cerebrovascular accident Inclusion Criteria At DC or during hospital stay patient has or had the following: CVA/TIA Diagnosis No Discharge Core Measures Meds if any: Prescribed or Continued at Discharge Meds if any: NOT Prescribed or Continued at Discharge Venous thromboembolism Inclusion Criteria VTE Diagnosis No VTE Type NONE VTE Confirmed by (Test) NONE Discharge Core Measures - Per Current guidelines, there needs to be overlap - treatment for the first 5 days of Warfarin therapy. - If discharged on Warfarin prior to 5 days of - overlap therapy, the patient will need to be - assessed for post discharge needs including - *Post discharge parental anticoagulation - *Warfarin and/or parental anticoagulation education - *Follow up date to check INR post discharge At least 5 days overlap therapy as Inpatient No Meds if any: Prescribed or Continued at Discharge Note: Overlap Therapy is Warfarin and Anticoagulant Meds if any: NOT Prescribed or Continued at Discharge
[2017-07-15] MEDS ORDERED: METOPROLOL SUCC25 M1 PO (10:14)
--- NOTE | 2017-07-15 10:16 | PN- Cardiology ---
Subjective Subjective: The patient reports that she is feeling well. No chest pain. No shortness of breath. No diaphoresis. No palpitations. No lightheadedness or dizziness. No nausea or vomiting. Telemetry monitoring reveals no arrhythmias. Objective Vital Signs and I&Os Vital Signs Date Time Temp Pulse Resp B/P B/P Pulse O2 O2 Flow FiO2 Mean Ox Delivery Rate 07/15 0911 80 98/58 07/15 0626 98.1 64 22 98/58 96 Room Air 07/14 2225 98.3 69 22 104/66 97 07/14 1414 99.1 75 18 106/66 98 Room Air 07/14 1215 98.2 75 20 113/62 96 Room Air Intake & Output 07/15 1600 07/15 0800 07/15 0000 07/14 1600 07/14 0800 07/14 0000 Intake Total 100 965 141 4732 Output Total Balance 100 305 419 5440 Intake, IV 1000 Intake, Oral 100 200 360 Patient 165 lb 165 lb Weight Physical Exam: Gen: The patient is in no acute distress HEENT: Normal nose, ears, and oropharynx. Pupils equal bilaterally. Conjunctiva normal. Neck: Supple with no JVD, no masses, and no thyromegaly Lungs: Clear to auscultation with normal respiratory effort Heart: RRR, S1, S2, no murmurs. No peripheral edema, 2+ pulses in the lower extremities bilaterally Abdomen: Soft, nontender, no masses. No hepatomegaly. No splenomegaly Extremities: No clubbing or cyanosis. Normal muscle strength in the upper and lower extremities Skin: Normal skin turgor with no skin ulcers or lesions noted. Neuro: Cranial nerves intact. Sensation intact Current Medications: Current Medications Sig/Luis Antonio Start time Last Medication Dose Route Stop Time Status Admin Acetaminophen 650 MG Q6P PRN 07/14 214 AC PO Enoxaparin Sodium 40 MG DAILY 07/14 1000 07/15 SC 0910 Ibuprofen 600 MG Q6P PRN 07/14 214 AC PO Levothyroxine Sodium 0.075 MG DAILY AC 07/14 0700 AC 07/15 PO 0619 Metoprolol Succinate 25 MG DAILY 07/14 1000 AC 07/14 PO 0855 Morphine Sulfate 2 MG Q4P PRN 07/14 214 AC IV Ondansetron HCl 4 MG Q6P PRN 07/14 214 AC IV Prednisone 7 MG DAILY 07/14 1000 AC 07/15 PO 0910 Sodium Chloride 1,000 ML Q13H 07/14 0245 DC 07/14 IV 07/14 1544 0321 Results Last 48 Hrs of Labs/Mics: Laboratory Tests 07/15/17 0650: Anion Gap 10, Estimated GFR > 60, BUN/Creatinine Ratio 18.3, Total Bilirubin 0.5 , Direct Bilirubin 0.2, AST 24, ALT 37, Alkaline Phosphatase 60, Total Protein 5.7 L, Albumin 3.0 L 07/14/17 0840: Cortisol AM Sample 12.6 07/14/17 0302: Troponin I < 0.01 07/13/17 2335: Troponin I < 0.01 07/13/17 2140: Urine Opiates Screen < 100.00, Methadone Screen < 40, Barbiturate Screen < 60, Ur Phencyclidine Scrn < 6.00, Amphetamines Screen < 100, U Benzodiazepines Scrn < 85, Urine Cocaine Screen < 50, Urine Cannabis Screen < 5.00, Urine Color YEL, Urine Clarity CLEAR, Urine pH 7.0, Ur Specific [place] 1.015, Urine Protein NEG, Urine Ketones NEG, Urine Nitrite NEG, Urine Bilirubin NEG, Urine Urobilinogen 0.2, Ur Leukocyte Esterase NEG, Ur Microscopic EXAM NOT REQUIRED, Urine Hemoglobin NEG, Urine Glucose NEG 07/13/171999: Anion Gap 15, Estimated GFR > 60, BUN/Creatinine Ratio 30.0 H, Glucose 94, Calcium 8.8, Total Bilirubin 1.2, AST 43 H, ALT 27, Alkaline Phosphatase 73, Troponin I < 0.01, Total Protein 7.6, Albumin 4.2, Globulin 3.4, Albumin/ Globulin Ratio 1.2, Lipase 142, D-Dimer High Sensitivty 331 H, CBC w Diff NO MAN DIFF REQ, RBC 4.64, MCV 91.0, MCH 30.5, MCHC 33.5, RDW 14.6 H, MPV 8.0, Gran % 86.5 H, Lymphocytes % 5.5 L, Monocytes % 7.0, Eosinophils % 0.7, Basophils % 0.3, Absolute Granulocytes 6.0, Absolute Lymphocytes 0.4 L, Absolute Monocytes 0.5, Absolute Eosinophils 0, Absolute Basophils 0 07/13/171929: Virus Culture Pending Microbiology 07/13 1929 NASOPHARYN: Influenza Virus A & B Rapid Smear - COMP Assessment/Plan Assessment/Plan 1. Paroxysmal SVT, improved status post ablation 2. Normal left atrial function on most recent echo 4 years ago 3. Syncope in the setting of nausea and vomiting. Differential diagnosis includes vasovagal syncope versus volume depletion. Cardiogenic syncope is possible as well but seems less likely at this point. Postural vital signs were checked and she is not orthostatic. Recommendations: * No evidence of arrhythmia seen * The patient is clear for discharge from cardiac standpoint. * Follow up in the office in 1 week. * If echocardiogram is not completed in the hospital, I will arrange for her to be done as an outpatient. Continue telemetry? Yes
[2017-07-15 12:20] VITALS: BP 120/64
--- NOTE | 2017-07-15 14:19 | ULTRASOUND REPORT ---
EXAMINATION: US ABDOMEN LIMITED CLINICAL INFORMATION: Nausea, vomiting, fever. Rule out hepatobiliary pathology. COMPARISON: None TECHNIQUE: Real-time imaging of the right upper quadrant abdominal viscera. FINDINGS: PANCREAS: The pancreatic body and portions of the head and tail are visualized and appear unremarkable. Remainder of pancreas is obscured by overlying bowel gas. LIVER: Normal. The liver demonstrates normal size, contour and echogenicity. No focal lesion or intrahepatic biliary duct dilatation. GALLBLADDER: Normal. The gallbladder is physiologically distended without evidence of stones, sludge, polyps, wall thickening or pericholecystic fluid. COMMON BILE DUCT: Normal in caliber measuring 0.4 cm in diameter. RIGHT KIDNEY: There is an approximately 1 cm diameter simple cyst in the upper pole cortex of the right kidney. No hydronephrosis. No renal calculi or suspicious focal parenchymal lesions. The kidney measures 10.3 cm in maximum dimension. FREE FLUID: None. IMPRESSION: 1. Incomplete view of the pancreatic head and tail. Visualized portions of pancreas unremarkable. 2. Small upper pole right renal cyst. 3. Gallbladder and liver are unremarkable.
[2017-07-15 14:40] VITALS: BP 122/60
== END 2017-07-15 16:20 ==
LOC: ERH 19:16 → 1NO 23:53 → ERHI 23:53 → ENRESERV 07-14 11:51 → ENTRNSPT 07-14 12:28 → EDTRNSPTSTS 07-14 12:40 → ENRESERV 07-14 12:49 → 1NO 07-14 12:57 → CMPTRNSPT 07-14 13:09 → 1NO 07-15 07:09 → ENTRNSPT 07-15 16:07 → 1NO 07-15 16:20 → CMPTRNSPT 07-15 16:27
PROVIDERS: Physician Assistant Medical
DX: R55 Syncope and collapse (principal); I47.1 Supraventricular tachycardia; E03.9 Hypothyroidism, unspecified; M06.9 Rheumatoid arthritis, unspecified; Z79.52 Long term (current) use of systemic steroids; R11.2 Nausea with vomiting, unspecified; R50.9 Fever, unspecified
CPT/HCPCS: 36415; 71045; 80307; 81003; 82436; 87040; 87804; 87804-59; 93005; 93010; 96361; 96372; 96374; 96375; G0378; J0131; J1650; J2405; J7512